=== PATIENT | male | born 1990 ===

== ENCOUNTER 2022-04-14 06:33 | Observation (INO) | payer SELFPAY ==
[2022-04-14 09:05] VITALS: BMI 25.0
[2022-04-14] MEDS ORDERED: Acetaminophen 325 MG TAB PO PRN (11:37)
[2022-04-14] MEDS ORDERED: Ondansetron PF 4 MG/2 ML Vial IVP PRN (11:37)
[2022-04-14] MEDS ORDERED: Ondansetron ODT 4 MG TAB PO PRN (11:37)
[2022-04-14] MEDS ORDERED: Morphine 2 MG/ML VIAL SLOW IVP PRN (11:39)
[2022-04-14] MEDS: Sodium Chloride 0.9% 1,000 ML IV SCH (12:19)
[2022-04-14] MEDS: Piperacillin/Tazobactam 3.375 GM in Sodium Chloride 0.9% 100 ML IVPB SCH ×2 (12:19→21:25)
[2022-04-14] MEDS: Famotidine/PF 20 mg/2ml Vial SLOW IVP SCH ×2 (21:19→21:25)
[2022-04-15] MEDS: Piperacillin/Tazobactam 3.375 GM in Sodium Chloride 0.9% 100 ML IVPB SCH (04:40)
[2022-04-15] MEDS: Sodium Chloride 0.9% 1,000 ML IV SCH (05:08)
[2022-04-15 05:43] LABS: #Eosinphils 0.4 thou/uL (0.0-0.7); #Lymphocytes 2.7 thou/uL (1.20-3.40); #Monocytes 0.5 thou/uL (0.11-0.59); #Neutrophils 2.5 thou/uL (1.40-6.50); %Basophils 0.4 % (0.0-1.0); %Eosinophils 6.7 % (0.0-10.0); %Lymphocytes 43.2 % (21.0-51.0); %Monocytes 8.5 % (0.0-10.0); %Neutrophils 41.2 % (42.0-75.0); Hemoglobin 14.1 g/dL (14.0-18.0); Mean Corpuscular HGB CONC 33.3 g/dL (32.0-36.0); Mean Corpuscular Hemoglobin 29.9 pg (27.0-31.0); Mean Corpuscular Volume 89.8 fl (78.0-98.0); Mean Platelet Volume 7.5 fL (7.4-10.4); Platelet Count 264 10x3/uL (130-400); RBC Distribution Width 11.4 % (11.5-14.5); Red Blood Cell (RBC) Count 4.72 mill/uL (4.70-6.10); White Blood Cell (WBC) Count 6.2 10x3/uL (4.8-10.8)
[2022-04-15 06:07] LABS: ALT (SGPT) 52 U/L (8-55); AST (SGOT) 29 U/L (5-34); Albumin 3.7 g/dL (3.5-5.0); Alkaline Phosphatase 57 U/L (40-110); Anion Gap 11 mmol/L (10-20); BUN (Urea Nitrogen) 9 mg/dL (8.9-20.6); Bilirubin, Total 0.8 mg/dL (0.2-1.2); Calc. Creatinine Clearance 145 mL/min (70-130); Carbon Dioxide 25 mmol/L (22-29); Chloride 108 mmol/L (98-107); Estimated GFR 122; Glucose 92 mg/dL (70-105); Potassium 4.1 mmol/L (3.5-5.1); Protein, Total 6.7 g/dL (6.0-8.3); Sodium 140 mmol/L (136-145)
[2022-04-15 07:53] VITALS: BP 114/74; TEMP 97.9
== END 2022-04-15 12:15 | disposition home or self-care (01) ==
LOC: SURG B 08:17 → INTOOBSV 08:17
PROVIDERS: ADMIT Internal Medicine; ATTEND Internal Medicine
DX: R10.84 Generalized abdominal pain (principal); R11.0 Nausea; K21.9 Gastro-esophageal reflux disease without esophagitis; K56.7 Ileus, unspecified
CPT/HCPCS: 36415; 80053; 85025; J2543; J3490; J7050; S0028